=== PATIENT | female | born 1990 ===

== ENCOUNTER 2024-10-08 06:30 | Day surgery (SDC) | payer BC, SELFPAY ==
[2024-10-01 08:51] LABS: Hematocrit 39.5 % (37.0-47.0); Hemoglobin 12.8 g/dL (12.0-16.0); Mean Corp Hgb Conc. 32.4 g/dL (33.0-37.0); Mean Corpuscular Hgb 28.4 pg (27.0-31.0); Mean Corpuscular Volume 87.8 fL (81.0-99.0); Mean Platelet Volume 9.4 fL (7.4-10.4); Platelet Count 292 10^3/uL (130-400); Red Cell Dist. Width 13.1 % (11.5-14.5); White Blood Cell Count 8.3 10^3/uL (4.8-10.8)
[2024-10-01 09:13] LABS: Blood Urea Nitrogen 7 mg/dl (7-17); Calcium 9.3 mg/dl (8.4-10.2); Carbon Dioxide 28 mmol/L (22-30); Chloride 102 mmol/L (98-107); Glucose 93 mg/dl (70-99); Potassium 4.2 mmol/L (3.5-5.1); Sodium 140 mmol/L (135-145); eGFR > 60.00
[2024-10-01 14:31] VITALS: BMI 29.9
[2024-10-08] VITALS (9 sets, daily range): BP systolic 105–127; BP diastolic 60–77; BMI 29.9
[2024-10-08] MEDS: Pyridium 200 MG PO (09:11)
[2024-10-08] MEDS: NORMOSOL-R/PLASMALYTE-A 1000 IV (09:12)
[2024-10-08] MEDS: ROXICODONE 5 MG PO (14:32)
== END 2024-10-08 15:00 | disposition home or self-care (01) ==
LOC: SDS 06:30
PROVIDERS: ATTENDING PHYSICIAN Obstetrics & Gynecology; FAMILY PHYSICIAN Family Medicine
DX: N80.399 Endometriosis of the pelvic peritoneum, other specified sites, unspecified depth (principal); R10.2 Pelvic and perineal pain
CPT/HCPCS: 58662; 88305; 36415; 80048; 85027; 86850; 86900; 86901